=== PATIENT | female | born 1995 | race American Indian/Alaskan Native ===

== ENCOUNTER 2023-10-13 23:42 | Emergency (ER) | payer SELFPAY ==
[2023-10-14 00:39] LABS: BASOPHILS ABSOLUTE AUTO 0.1 K/mm3 (0.0-0.2); BASOPHILS PERCENT AUTO 0.5 % (0.0-1.0); EOSINOPHILS PERCENT AUTO 7.8 % (0.0-6.0); HEMATOCRIT 39.7 % (37.0-47.0); HEMOGLOBIN 12.3 gm/dl (12.0-16.0); IMMATURE GRAN ABSOLUTE AUTO 0.05 K/mm3 (0.00-0.05); IMMATURE GRAN PERCENT AUTO 0.4 % (0.0-0.4); LYMPHOCYTES ABSOLUTE AUTO 2.7 K/mm3 (1.0-4.8); LYMPHOCYTES PERCENT AUTO 21.3 % (24.0-44.0); MEAN CORPUSCULAR HEMOGLOBIN 21.7 pg (28.0-32.0); MEAN PLATELET VOLUME 9.3 fl (9.4-12.3); MONOCYTES ABSOLUTE AUTO 0.9 K/mm3 (0.0-0.8); MONOCYTES PERCENT AUTO 6.9 % (0.0-8.0); NEUTROPHILS PERCENT AUTO 63.1 % (41.0-71.0); PLATELET COUNT,PLT 493 K/mm3 (150-400); RED BLOOD CELL COUNT 5.67 M/mm3 (4.10-5.30)
[2023-10-14] MEDS: Prochlorperazine 10 MG in Sodium Chloride 0.9% 50 ML IV ONE (00:39)
[2023-10-14] MEDS: Sodium Chloride 0.9% 1,000 ML IV ONE (00:39)
[2023-10-14 00:55] LABS: A/G RATIO 0.8 (1-2); ALBUMIN 3.5 g/dl (3.4-5.0); ANION GAP 16.2 (5-15); BILIRUBIN TOTAL 0.7 mg/dL (0.2-1.0); BUN/CREATININE RATIO 10.9 (14-18); CALCIUM 9.4 mg/dL (8.5-10.1); CREATININE 1.1 mg/dL (0.55-1.02); EST CRCL DRUG DOSING (CG) 61.86 mL/min; POTASSIUM,K 3.2 mEq/L (3.5-5.1); PROTEIN TOTAL,TP 7.8 g/dl (6.4-8.2)
[2023-10-14 01:58] LABS: APPEARANCE,URINE CLEAR (Clear); BILIRUBIN,URINE 1+ (Negative); COLOR,URINE DARK YELLOW (Yellow); GLUCOSE,URINE NEGATIVE (Negative); KETONES,URINE 1+ (Negative); LEUKOCYTE ESTERASE,URINE 1+ (Negative); NITRITE,URINE NEGATIVE (Negative); OCCULT BLOOD,URINE NEGATIVE (Negative); PROTEIN,URINE 1+ (Negative); UROBILINOGEN,URINE 0.2 (0.2-1.0)
[2023-10-14 02:05] LABS: BACTERIA,URINE FEW /hpf (FEW); RBC,URINE 0-5 /hpf (0-5); WBC CLUMPS,URINE RARE /hpf (NOT SEEN)
[2023-10-14 02:06] LABS: MUCUS,URINE NOT SEEN /hpf (FEW)
== END 2023-10-14 03:38 | disposition home or self-care (01) ==
LOC: JD.ED 23:42
DX: R11.2 Nausea with vomiting, unspecified (principal); R10.12 Left upper quadrant pain; Z79.899 Other long term (current) drug therapy
CPT/HCPCS: 36415; 80053; 81001; 81025; 83690; 85025; 87086; 96361; 96365; 99284; J0780; J3490; J7030; 99283

== ENCOUNTER 2023-10-15 08:58 | Emergency (ER) | payer SELFPAY ==
[2023-10-15] MEDS: Sodium Chloride 0.9% 1,000 ML IV ONE (09:54)
[2023-10-15 10:00] LABS: BASOPHILS ABSOLUTE AUTO 0.1 K/mm3 (0.0-0.2); BASOPHILS PERCENT AUTO 0.5 % (0.0-1.0); EOSINOPHILS ABSOLUTE AUTO 0.1 K/mm3 (0.0-0.4); EOSINOPHILS PERCENT AUTO 0.5 % (0.0-6.0); HEMATOCRIT 39.2 % (37.0-47.0); HEMOGLOBIN 12.1 gm/dl (12.0-16.0); IMMATURE GRAN ABSOLUTE AUTO 0.03 K/mm3 (0.00-0.05); IMMATURE GRAN PERCENT AUTO 0.3 % (0.0-0.4); LYMPHOCYTES ABSOLUTE AUTO 2.6 K/mm3 (1.0-4.8); LYMPHOCYTES PERCENT AUTO 27.6 % (24.0-44.0); MEAN CORPUSCULAR HEMOGLOBIN 21.6 pg (28.0-32.0); MEAN CORPUSCULAR HGB CONC 30.9 g/dl (32.0-36.0); MONOCYTES ABSOLUTE AUTO 0.8 K/mm3 (0.0-0.8); MONOCYTES PERCENT AUTO 7.9 % (0.0-8.0); NEUTROPHILS ABSOLUTE AUTO 6.1 K/mm3 (1.8-7.7); NEUTROPHILS PERCENT AUTO 63.2 % (41.0-71.0); PLATELET COUNT,PLT 462 K/mm3 (150-400); WHITE BLOOD CELL COUNT,WBC 9.58 K/mm3 (3.9-11.3)
[2023-10-15] MEDS: Ondansetron 4 MG/2 ML SDV IVPUSH ONE (10:07)
[2023-10-15] MEDS: Famotidine 20 MG/2 ML SDV IVPUSH ONE (10:10)
[2023-10-15 10:30] LABS: A/G RATIO 0.9 (1-2); ALBUMIN 3.6 g/dl (3.4-5.0); ANION GAP 16.3 (5-15); BILIRUBIN TOTAL 0.9 mg/dL (0.2-1.0); BUN/CREATININE RATIO 14.4 (14-18); CALCIUM 8.9 mg/dL (8.5-10.1); CREATININE 0.9 mg/dL (0.55-1.02); EST CRCL DRUG DOSING (CG) 75.61 mL/min; POTASSIUM,K 3.3 mEq/L (3.5-5.1); PROTEIN TOTAL,TP 7.7 g/dl (6.4-8.2)
== END 2023-10-15 11:27 | disposition home or self-care (01) ==
LOC: JD.ED 08:58
DX: K29.00 Acute gastritis without bleeding (principal); Z79.85 Long-term (current) use of injectable non-insulin antidiabetic drugs; Z79.899 Other long term (current) drug therapy
CPT/HCPCS: 36415; 80053; 83690; 84703; 85025; 96361; 96374; 96375; 99284; 99284-25; J2405; J3490; J7030